=== PATIENT | female | born 1955 | race Caucasian/White ===

== ENCOUNTER 2017-11-17 09:35 | Emergency (ER) | payer SELFPAY ==
[2017-11-17] MEDS ORDERED: BABY ASPIRIN 81 MG CHEW PO ONE (09:53)
[2017-11-17] MEDS ORDERED: BABY ASPIRIN 81 MG CHEW ONE (10:00)
[2017-11-17] MEDS ORDERED: Sodium Chloride 0.9% 1000 ML 1,000 ML IV SCH (10:00)
[2017-11-17] MEDS ORDERED: Sodium Chloride 0.9% 1000 ML 1,000 ML ONE (10:00)
--- NOTE | 2017-11-17 10:01 | ERPHSYRPT ---
- History of Present Illness Time Seen by Provider: 11/17/17 09:53 Source: patient Exam Limitations: no limitations Patient Subjective Stated Complaint: Pt states "I woke up this morning and I have been under allot of stress lately and when I jumped up, The room was spinning and I felt like I was going to vomit." Triage Nursing Assessment: Pt alert and oriented X 3, skin pwd. PT ambulates with an upright steady gait, pt extremely anxious and talkative. Physician History: This is a 62-year-old white female who states that she recently had arterial inflammation associated with dizziness and had been on prednisone. She arrives with complaints that she woke up at approximately 8:30 this morning with complaint of nausea and dizziness she appears to be somewhat anxious she also states that she feels like she might be suffering from anxiety. She has not had any movement disorders he has no chest pain no shortness of breath. patient does state she's been working several days greater than 13 hours a day and feel like she might be under stress Patient does state that she had some right arm pain last night around 9:30 him which went away with nitroglycerin spray and baby aspirin. Past medical history includes arterial inflammation associated with dizziness Past surgical history includes hysterectomy and tonsils social history patient denies alcohol or illicit drug use however patient does state that she has smoked about 6 times in the past several months and has smoked within the last week. Patient was seen approximately 4 years ago for the same complaint and diagnosed with anxiety. Patient feels like this was likely which she is experiencing today. Timing/Duration: today (8:30 AM) Severity: moderate Modifying Factors: Worsens With: eating, immobilization, medication, movement, rest, acetaminophen, ibuprofen, nothing Associated Symptoms: nausea, other (dizzy, anxiety), No vomiting, No abdominal pain, No shortness of breath, No heartburn, No diaphoresis, No cough, No chills , No chest pain, No fever, No headaches, No loss of appetite, No malaise, No rash, No syncope, No seizure, No weakness Allergies/Adverse Reactions: codeine Allergy (Severe, Verified 11/17/17 09:48) Swelling Hx Tetanus, Diphtheria Vaccination/Date Given: No Hx Influenza Vaccination/Date Given: No Hx Pneumococcal Vaccination/Date Given: No Immunizations Up to Date: Yes - Review of Systems Constitutional: No Fever, No Chills Eyes: No Symptoms Ears, Nose, & Throat: No Symptoms Respiratory: No Cough, No Dyspnea Cardiac: Other (left arm pain last pm went away with baby asa and nitroglycerine spray), No Chest Pain, No Edema, No Syncope Abdominal/Gastrointestinal: Nausea, No Abdominal Pain, No Vomiting, No Diarrhea , No Constipation, No Hematemesis, No Hematochezia, No Melena, No Dysphagia, No Appetite Changes Genitourinary Symptoms: No Dysuria Musculoskeletal: No Back Pain, No Neck Pain Skin: No Rash Neurological: Dizziness, No Focal Weakness, No Gait Changes, No Headache, No Irritability, No Lethargy, No Paralysis, No Parasthesia, No Seizure, No Sensory Changes, No Speech Changes, No Tics, No Tremors, No Vertigo Psychological: No Symptoms Endocrine: No Symptoms All Other Systems: Reviewed and Negative - Past Medical History Pertinent Past Medical History: No Other Medical History: patient states that she was recently treated with prednisone for arterial inflammation and dizziness - Past Surgical History Past Surgical History: Yes Female Surgical History: Hysterectomy - Social History Smoking Status: Current some day smoker How long have you smoked: years Exposure to second hand smoke: Yes Drug Use: none Patient Lives Alone: No - Nursing Vital Signs Nursing Vital Signs: Initial Vital Signs Temperature 98.1 F 11/17/17 09:42 Pulse Rate 64 11/17/17 09:42 Respiratory Rate 24 11/17/17 09:42 Blood Pressure 111/73 11/17/17 09:42 O2 Sat by Pulse Oximetry 98 11/17/17 09:42 Pain Scale Pain Intensity 0 - Physical Exam General Appearance: anxiety, other (well-developed well-nourished white female, anxious, alert, oriented 3, in no acute distress) Eye Exam: PERRL/EOMI, eyes nml inspection Ears, Nose, Throat Exam: normal ENT inspection, TMs normal, pharynx normal, moist mucous membranes Neck Exam: normal inspection, non-tender, supple, full range of motion Respiratory Exam: normal breath sounds, lungs clear, No respiratory distress Cardiovascular Exam: regular rate/rhythm, normal heart sounds, normal peripheral pulses Gastrointestinal/Abdomen Exam: soft, normal bowel sounds, No tenderness, No mass Back Exam: normal inspection, normal range of motion, No CVA tenderness, No vertebral tenderness Extremity Exam: normal inspection, normal range of motion, pelvis stable Neurologic Exam: alert, oriented x 3, cooperative, lead front desk agent II-XII nml as tested, normal mood/affect, nml cerebellar function, nml station & gait, sensation nml, other (normal finger to nose, neighborhood planner equal 5 over 5,, sensation intact to all extremities, no pronator drift, GCS equals 15,speech normal, no facial droop), No motor deficits Lymphatic Exam: No adenopathy SpO2 Interpretation: normal (98%) SpO2: 98 Oxygen Delivery: Room Air - Course Nursing assessment & vital signs reviewed: Yes EKG Interpreted by Me: RATE, Sinus Rhythm (EKG: Sinus rhythm, 63 bpm,, T wave inversion V2 to V3 more pronounced as compared to January 03, 2014, poor anterior R -wave progression stable as compared to 01/03/[address] changes) Ordered Tests: Active Orders 24 hr Category Date Time Status Accucheck STAT Care 11/17/17 09:55 Active Artificial Stone Applicator STAT Care 11/17/17 09:54 Active EKG-ER Only STAT Care 11/17/17 09:53 Active IV Insertion STAT Care 11/17/17 09:53 Active Orthostatic Vital Signs STAT Care 11/17/17 09:55 Active Pulse Oximetry (ED) STAT Care 11/17/17 09:53 Active CBC W DIFF Stat Lab 11/17/17 09:58 Completed CMP Stat Lab 11/17/17 09:58 Completed SED RATE [Erythrocyte Sedimentation Rate] Stat Lab 11/17/17 12:18 Completed TROPONIN Q3H Lab 11/17/17 09:58 Completed TROPONIN Stat Lab 11/17/17 12:42 Completed Medication Summary Generic Name Dose Route Start Last Admin Trade Name Freq PRN Reason Stop Dose Admin Sodium Chloride 1,000 mls @ 100 mls/hr 11/17/17 10:00 11/17/17 10:01 Sodium Chloride 0.9% 1000 Ml IV 12/17/17 09:59 100 mls/hr .Q10H TERESO Administration Discontinued Medications Generic Name Dose Route Start Last Admin Trade Name Freq PRN Reason Stop Dose Admin Aspirin 243 mg 11/17/17 09:53 11/17/17 10:01 Baby Aspirin 81 Mg Chew PO 11/17/17 09:54 243 mg STAT ONE Administration Aspirin Confirm 11/17/17 10:00 Baby Aspirin 81 Mg Chew Administered 11/17/17 10:01 Dose 243 mg .ROUTE .[facility] Sodium Chloride Confirm 11/17/17 10:00 Sodium Chloride 0.9% 1000 Ml Administered 11/17/17 10:01 Dose 1,000 mls @ ud .ROUTE .[facility] ONE Lab/Rad Data: Laboratory Result Diagrams 11/17/17 09:58 11/17/17 09:58 Laboratory Results 11/17/17 11/17/17 11/17/17 Range/Units 12:42 12:18 09:58 WBC (4.0-10.5) K/mm3 RBC (4.1-5.4) M/mm3 Hgb (12.0-16.0) gm/dl Hct (35-47) % MCV (78-100) fl MCH (26-32) pg MCHC (32-36) g/dl RDW (11.5-14.0) % Plt Count (150-450) K/mm3 MPV (6-9.5) fl Gran % (36.0-66.0) % Eos # (Auto) (0-0.5) Absolute Lymphs (auto) (1.0-4.6) Absolute Monos (auto) (0.0-1.3) Lymphocytes % (24.0-44.0) % Monocytes % (0.0-12.0) % Eosinophils % (0.00-5.0) % Basophils % (0.0-0.4) % Absolute Granulocytes (1.4-6.9) Basophils # (0-0.4) ESR 43 H (0-20) mm/hr Sodium (137-145) mmol/L Potassium (3.5-5.1) mmol/L Chloride (98-107) mmol/L Carbon Dioxide (22-30) mmol/L Anion Gap (5-15) MEQ/L BUN (7-17) mg/dL Creatinine (0.52-1.04) mg/dL Estimated GFR ML/MIN Glucose (74-106) mg/dL Calcium (8.4-10.2) mg/dL Total Bilirubin (0.2-1.3) mg/dL AST (14-36) U/L ALT (0-35) U/L Alkaline Phosphatase (38-126) U/L Troponin I 0.019 0.024 (0.000-0.034) ng/mL Serum Total Protein (6.3-8.2) g/dL Albumin (3.5-5.0) g/dL Slides for Path Review 11/17/17 11/17/17 Range/Units 09:58 09:58 WBC 4.7 (4.0-10.5) K/mm3 RBC 4.53 (4.1-5.4) M/mm3 Hgb 12.3 (12.0-16.0) gm/dl Hct 38.1 (35-47) % MCV 84.1 (78-100) fl MCH 27.2 (26-32) pg MCHC 32.3 (32-36) g/dl RDW 13.6 (11.5-14.0) % Plt Count 256 (150-450) K/mm3 MPV 9.6 H (6-9.5) fl Gran % 70.9 H (36.0-66.0) % Eos # (Auto) 0.13 (0-0.5) Absolute Lymphs (auto) 0.95 L (1.0-4.6) Absolute Monos (auto) 0.25 (0.0-1.3) Lymphocytes % 20.3 L (24.0-44.0) % Monocytes % 5.4 (0.0-12.0) % Eosinophils % 2.8 (0.00-5.0) % Basophils % 0.6 (0.0-0.4) % Absolute Granulocytes 3.31 (1.4-6.9) Basophils # 0.03 (0-0.4) ESR (0-20) mm/hr Sodium 142 (137-145) mmol/L Potassium 3.7 (3.5-5.1) mmol/L Chloride 107 (98-107) mmol/L Carbon Dioxide 25 (22-30) mmol/L Anion Gap 14.1 (5-15) MEQ/L BUN 11 (7-17) mg/dL Creatinine 0.51 L (0.52-1.04) mg/dL Estimated GFR > 60.0 ML/MIN Glucose 118 H (74-106) mg/dL Calcium 9.4 (8.4-10.2) mg/dL Total Bilirubin 0.50 (0.2-1.3) mg/dL AST 17 (14-36) U/L ALT 14 (0-35) U/L Alkaline Phosphatase 106 (38-126) U/L Troponin I (0.000-0.034) ng/mL Serum Total Protein 6.7 (6.3-8.2) g/dL Albumin 3.9 (3.5-5.0) g/dL Slides for Path Review NO - Progress Progress: improved Progress Note: 11/17/17 10:41 Patient is feeling better still somewhat anxious she is offered Ativan however she does not want to take this troponin is within normal limits at this time EKG shows T wave inversion in leads V2 V3 there was some of this for years ago there is no acute ST changes. Patient did have some right arm pain last night which went away with aspirin and nitroglycerin. No pain today no shortness of breath today. Patient is quite anxious concerning her employment states she's been working a lot. Will repeat troponin 3 hours after last draw 11/17/17 13:29 Patient is markedly improved. Patient had repeat troponin within normal limits patient's sedimentation rate was 43. Patient in no acute distress patient not dizzy at this time. Patient does not Ativan at this time. 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 Patient states she plans to follow-up with Dr. Harrington. She also sees Dr. Webber. Will release patient will give patient Antivert 25 mg orally 3 times a day as needed #20. She is to follow-up with her family doctor. Return for acute distress or for severe symptoms. - Departure Time of Disposition: 13:31 Departure Disposition: Home Clinical Impression: Dizziness, Anxiety Condition: Fair Critical Care Time: No Referrals: ANMOL HARRINGTON [Primary Care Provider] - Additional Instructions: Return home, rest, plenty of fluids.. Antivert as prescribed. Follow-up with your family doctor call and make an appointment. Return for acute distress or for severe symptoms. Prescriptions: Meclizine HCl 25 mg [Antivert 25 mg] 25 mg PO TID PRN #20 tablet
[2017-11-17 10:04] LABS: BASOPHIL % 0.6 % (0.0-0.4); Basophil (Absolute #) 0.03 (0-0.4); Eosinophil % 2.8 % (0.00-5.0); Eosinophil (Absolute #) 0.13 (0-0.5); Granulocyte Absolute (ANC) 3.31 (1.4-6.9); Granulocytes % 70.9 % (36.0-66.0); Hematocrit 38.1 % (35-47); Hemoglobin 12.3 gm/dl (12.0-16.0); Lymphocyte (Absolute #) 0.95 (1.0-4.6); Lymphocytes % 20.3 % (24.0-44.0); Mean Cell Volume 84.1 fl (78-100); Mean Corpuscular Hemoglobin 27.2 pg (26-32); Mean Corpuscular Hgb Concent. 32.3 g/dl (32-36); Mean Platelet Volume 9.6 fl (6-9.5); Monocyte (Absolute #) 0.25 (0.0-1.3); Monocytes % 5.4 % (0.0-12.0); Platelet Count 256 K/mm3 (150-450); Red Blood Count 4.53 M/mm3 (4.1-5.4); Red Cell Distribution Width 13.6 % (11.5-14.0); White Blood Count 4.7 K/mm3 (4.0-10.5)
[2017-11-17 10:19] LABS: ALBUMIN 3.9 g/dL (3.5-5.0); ALKALINE PHOSPHATASE 106 U/L (38-126); ANION GAP 14.1 MEQ/L (5-15); BLOOD UREA NITROGEN 11 mg/dL (7-17); CHLORIDE 107 mmol/L (98-107); Calcium 9.4 mg/dL (8.4-10.2); Carbon Dioxide 25 mmol/L (22-30); Creatinine 1 0.51 mg/dL (0.52-1.04); Glucose 118 mg/dL (74-106); Potassium 3.7 mmol/L (3.5-5.1); SGOT/AST 17 U/L (14-36); SGPT/ALT 14 U/L (0-35); SODIUM 142 mmol/L (137-145); Total Protein 6.7 g/dL (6.3-8.2)
[2017-11-17 12:59] LABS: Slide Review 1 NO
[2017-11-17 13:34] VITALS: O2SAT 98
[2017-11-17 13:47] VITALS: BP 107/65; PULSE 75
== END 2017-11-17 13:51 | disposition home or self-care (01) ==
LOC: ED 09:35
DX: R42 Dizziness and giddiness (principal); R11.0 Nausea; F41.9 Anxiety disorder, unspecified
CPT/HCPCS: 36000; 36415; 80053; 82962; 84484; 85025; 85652; 93005; 93041; 96360; 96361; 99284; A9270-GY

== ENCOUNTER 2024-11-13 20:07 | Emergency (ER) | payer MEDICARE ==
[2024-11-13 20:13] VITALS: RESP 20; TEMP 98.3; O2SAT 97
--- NOTE | 2024-11-13 20:44 | ERPHSYRPT ---
- History of Present Illness Time Seen by Provider: 11/13/24 20:44 Source: patient Exam Limitations: no limitations Patient Subjective Stated Complaint: fractured toe but swelling more today to rt great toe and top of foot Triage Nursing Assessment: Pt ambulated into ER without difficulty. Pt fell and fx her rt great toe on 10/24 and is here today because she feels the rt great toe and the top of rt foot is a little more swollen than it has been. Pt has been wearing a spandagrip to rt foot/lower ext and has been up on her feet. Slight edema noted to rt great toe and the top of right foot, non-pitting. Rt pedal pulse present. Physician History: Patient is a 69-year-old female with a known fractured right great toe. Patient reports she fractured her involved toe on October 24. Patient had since followed up with podiatry. Patient presents to our ED for evaluation of increased pain and swelling at the involved site. Patient states that her retail center receptionist nurse practitioner Dami Chambers advised her to come to our ED if she developed worsening pain or swelling. Patient denies trauma. But states that she has been up on her feet more so than usual. However no interval trauma. Patient describes her pain as an ache but declines pain medication. No other complaints. No ankle pain no knee hip or back pain. Symptoms are mild to moderate in intensity. Pain worse with weightbearing. Pain improves with rest. Patient otherwise feels well. She voices no other complaints or concerns at this time. Portions of this note were created with voice recognition technology. There may be grammatical, spelling, punctuation or sound alike errors Timing/Duration: today Severity: moderate Modifying Factors: Improves With: movement Associated Symptoms: denies symptoms Allergies/Adverse Reactions: codeine Allergy (Severe, Verified 11/13/24 20:20) Swelling Home Medications: No Reportable Medications [No Reported Medications] 11/13/24 [History] Hx Tetanus, Diphtheria Vaccination/Date Given: Yes Hx Influenza Vaccination/Date Given: No Hx Pneumococcal Vaccination/Date Given: Yes Travel Risk - International Travel Have you traveled outside of the country in past 3 weeks: No - Emerging Infectious Disease Are you exhibiting symptoms associated with any current EIDs: No - Review of Systems Constitutional: No Symptoms, No Fever, No Chills Eyes: No Symptoms Ears, Nose, & Throat: No Symptoms Respiratory: No Symptoms, No Cough, No Dyspnea Cardiac: No Symptoms, No Chest Pain, No Edema, No Syncope Abdominal/Gastrointestinal: No Symptoms, No Abdominal Pain, No Nausea, No Vomiting, No Diarrhea Genitourinary Symptoms: No Symptoms, No Dysuria Musculoskeletal: No Symptoms, No Back Pain, No Neck Pain Skin: No Symptoms, No Rash Neurological: No Symptoms, No Dizziness, No Focal Weakness, No Sensory Changes Psychological: No Symptoms Endocrine: No Symptoms Hematologic/Lymphatic: No Symptoms Immunological/Allergic: No Symptoms All Other Systems: Reviewed and Negative - Past Medical History Pertinent Past Medical History: Yes Neurological History: TIA ENT History: Cataracts Cardiac History: No Pertinent History Respiratory History: No Pertinent History Endocrine Medical History: No Pertinent History Musculoskeletal History: No Pertinent History GI Medical History: No Pertinent History History: No Pertinent History Psycho-Social History: No Pertinent History Female Reproductive Disorders: No Pertinent History Other Medical History: arterial inflammation and dizziness. histoplasmosis. endometrial cancer - Past Surgical History Past Surgical History: Yes Gastrointestinal: Hernia Repair Female Surgical History: Hysterectomy, Tubal Ligation - Social History Smoking Status: Former smoker Exposure to second hand smoke: No Drug Use: none - Social Determinants of Health Do you worry about a steady place to live?: No Do you have any problems with any of the following?: No known problems In the past 12 months,have you had to go without utilities?: No Transportation Issues: No Has anyone in your support network made you feel unsafe?: No Have you or anyone in your house had to go w/o enough food: No - Nursing Vital Signs Nursing Vital Signs: Initial Vital Signs Temperature 98.3 F 11/13/24 20:12 Pulse Rate 85 11/13/24 20:12 Respiratory Rate 20 11/13/24 20:12 Blood Pressure 109/77 11/13/24 20:12 O2 Sat by Pulse Oximetry 97 11/13/24 20:12 Pain Scale Pain Intensity 7 - Physical Exam General Appearance: no apparent distress, alert Eye Exam: PERRL/EOMI, eyes nml inspection Ears, Nose, Throat Exam: normal ENT inspection, moist mucous membranes Neck Exam: normal inspection, full range of motion Respiratory Exam: normal breath sounds, airway intact, No respiratory distress Cardiovascular Exam: regular rate/rhythm Gastrointestinal/Abdomen Exam: soft, normal bowel sounds, No tenderness, No mass Back Exam: normal inspection, No CVA tenderness, No vertebral tenderness Extremity Exam: normal inspection, normal range of motion, other (The involved digits neurovascular tact distally compartments are soft cap refill less than 2 seconds. Overlying soft tissue intact. No open or draining lesions.) Neurologic Exam: alert, oriented x 3, cooperative, normal mood/affect, sensation nml, No motor deficits Skin Exam: normal color, warm, dry, No rash Lymphatic Exam: No adenopathy SpO2 Interpretation: normal SpO2: 97 O2 Delivery: Room Air - Course Nursing assessment & vital signs reviewed: Yes - Radiology Exams Foot X-ray Interpretation: Teleradiologist Report (There is a fracture of the proximal phalanx right great toe. However this fracture is known. ) Ordered Tests: Active Orders 24 hr Category Date Time Status FOOT (MINIMUM 3 VIEWS) Stat Exams 11/13/24 20:43 Taken - Progress Progress: unchanged Progress Note: 69-year-old female presents to emergency department for evaluation of toe pain and swelling. Patient has a known proximal phalanx fracture. Patient denies interval trauma. Physical exam reveals some tenderness and swelling. Overlying soft tissue intact. The involved digits neurovascular intact distally compartments are soft cap refill less than 2 seconds. No signs of infection or cellulitis. X-ray shows the known fracture. No new fractures observed. However formal read pending. Patient declined pain medication. Patient referred to orthopedic clinic for follow-up. Patient will follow-up tomorrow morning. Patient voices no other complaints or concerns at this time. Portions of this note were created with voice recognition technology. There may be grammatical, spelling, punctuation or sound alike errors Complexity of problem addressed is moderate acute complicated. No critical care time. Complexity of data reviewed and analyzed is moderate. Test ordered test reviewed results analyzed and correlated clinically with history and physical exam. Risk of complication and or risk of morbidity/mortality of patient management is low. Vital stable. Time spent to discharge patient is approximately 10 minutes. Plan of care established via shared decision making. No social determinants of health present to impede follow-up. Portions of this note were created with voice recognition technology. There may be grammatical, spelling, punctuation or sound alike errors 11/13/24 21:13 Counseled pt/family regarding: diagnosis, need for follow-up, rad results - Departure Departure Disposition: Home Clinical Impression: Toe pain, Toe fracture, right Condition: Stable Critical Care Time: No Referrals: KALI GEE MD [Primary Care Provider, [facility]] - Follow up/PCP as directed Additional Instructions: Discharge/Care Plan KITTY SIERRA was seen on 11/13/24 in the Emergency Room. The patient was counseled regarding Diagnosis,Lab results, Imaging studies, need for follow up and when to return to the Emergency Room. Prescriptions given: Discharge Note I have spoken with the patient and/or caregivers. I have explained the patient's condition, diagnosis and treatment plan based on the information available to me at this time. I have answered the patient's and/or caregiver's questions and addressed any concerns. The patient and/or caregivers have as good understanding of the patient's diagnosis, condition and treatment plan as can be expected at this point. The vital signs have been stable. The patient's condition is stable and appropriate for discharge from the emergency department. The patient will pursue further outpatient evaluation with the primary care physician or other designated or consulting physician as outlined in the discharge instructions. The patient and/or caregivers are agreeable to this plan of care and follow-up instructions have been explained in detail. The patient and/or caregivers have received these instruction. The patient/and or caregivers are aware that any significant change in condition or worsening of symptoms should prompt an immediate return to this or the closest emergency department or call 911. Outpatient Orders: Ortho Referral Time Frame: 1 Day, Facility: [facility][1]. Hosp, Location: ORTHO CLINIC
[2024-11-13 21:23] VITALS: BP 110/70; PULSE 88
--- NOTE | 2024-11-14 08:42 | XRAY ---
Indication: Pain following injury. Comparison: None 3 nonweightbearing views right foot demonstrates minimally depressed fracture base 1st proximal phalanx, articular surface with soft tissue swelling. Chronic findings including osteopenia, tiny plantar heel spur, and tiny ossifications plantar aponeurosis presumed sequela old injury/inflammation.
== END 2024-11-13 21:20 | disposition home or self-care (01) ==
LOC: ED 20:07
DX: S92.411A Displaced fracture of proximal phalanx of right great toe, initial encounter for closed fracture (principal); M79.674 Pain in right toe(s)
CPT/HCPCS: 73630; 99282; 99283